=== PATIENT | female | born 1955 | race Caucasian/White ===

== ENCOUNTER 2017-04-09 21:19 | Emergency (ER) | payer MEDICARE, OTHER ==
--- NOTE | 2017-04-09 21:57 | ED ---
Fall HPI - General Chief Complaint: Fall Stated Complaint: Fall/Ankle/knee pain Time Seen by Provider: 04/09/17 21:45 Source: patient, RN notes reviewed Mode of arrival: wheelchair Limitations: no limitations - History of Present Illness Initial Comments: This a 61-year-old female presents emergency Department chief complaint fall. Patient states that she was going in and out of her house into the garage to unload her groceries. She states that she missed a step going into the garage and states she fell down on the ground. Patient states is only 2 steps and denies any head injury no LOC. Patient complains of bilateral wrist, hand pain , right knee pain and primary left ankle pain. Patient states that she does occasionally have use a wheelchair because she has severe rheumatoid arthritis. Patient states her left ankle is swollen greatest the lateral aspect. Patient states is good range of motion of her wrist and hand was very tender. Patient also complains of left medial knee pain. Patient does have an orthopedic doctor Felicitas. - Related Data Allergies Allergy/AdvReac Type Severity Reaction Status Date / Time latex Allergy Anaphylaxis Verified 04/09/17 21:42 atropine [From Lomotil] AdvReac Nausea & Verified 04/09/17 21:42 Vomiting azithromycin AdvReac Nausea & Verified 04/09/17 21:42 Vomiting diphenoxylate [From Lomotil] AdvReac Nausea & Verified 04/09/17 21:42 Vomiting prochlorperazine AdvReac Nausea & Verified 04/09/17 21:42 [From Compazine] Vomiting Sulfa (Sulfonamide AdvReac Nausea & Verified 04/09/17 21:42 Antibiotics) Vomiting sulfamethoxazole AdvReac Nausea & Verified 04/09/17 21:42 [From Bactrim] Vomiting trimethoprim [From Bactrim] AdvReac Nausea & Verified 04/09/17 21:42 Vomiting Review of Systems ROS Statement: Those systems with pertinent positive or pertinent negative responses have been documented in the HPI. ROS Other: All systems not noted in ROS Statement are negative. Past Medical History Past Medical History: Rheumatoid Arthritis (RA) Additional Past Medical History / Comment(s): left achilles tendon tear History of Any Multi-Drug Resistant Organisms: None Reported Past Surgical History: Cholecystectomy Additional Past Surgical History / Comment(s): bilateral knee arthroscopy Past Psychological History: No Psychological Hx Reported Smoking Status: Never smoker Past Alcohol Use History: None Reported Past Drug Use History: Marijuana General Exam Limitations: no limitations General appearance: alert, in no apparent distress, obese Neck exam: Present: full ROM. Absent: tenderness Respiratory exam: Present: normal lung sounds bilaterally. Absent: respiratory distress, wheezes, rales, rhonchi, stridor Cardiovascular Exam: Present: regular rate, normal rhythm, normal heart sounds. Absent: systolic murmur, diastolic murmur, rubs, gallop, clicks Extremities exam: Present: other (Left ankle there is moderate swelling and slight deformity noted, pedal pulses are equal bilaterally there is no foot tenderness, left knee within normal limits., Right knee there is medial tenderness along the tibia, patient has full range of motion there is no patellar tenderness there is no ecchymosis, erythema. Patient right hand is tender over the fifth metacarpal with some swelling noted Refill less than 2 seconds there is no radiation, tenderness, left hand is tenderness along the fourth and fifth metacarpal with no wrist tenderness Refill less than 2 seconds) Course Vital Signs 04/09/17 21:35 Temperature 98.7 F Pulse Rate 69 Respiratory 16 Rate Blood Pressure 142/67 O2 Sat by Pulse 97 Oximetry Procedures - Orthopedic Splinting/Casting Injury #1 Side: left Lower Extremity Injury Location: ankle Lower Extremity Immobilizer: posterior splint (Short leg neurovascular intact before and after procedure) Medical Decision Making - Medical Decision Making 61-year-old female presented for fall. Patient has a left ankle fracture. Patient be splinted and follow up with orthopedics. Return parameters were discussed. Disposition Clinical Impression: Fall, Ankle fracture, left Disposition: HOME SELF-CARE Condition: Stable Instructions: Ankle Fracture (ED) Additional Instructions: Please return to the Emergency Department if symptoms worsen or any other concerns. Referrals: Jessee Wagner DO [Primary Care Provider] - 1-2 days Scott Polk MD [Medical Doctor] - 1-2 days Time of Disposition: 23:15
--- NOTE | 2017-04-09 22:51 | XR ---
EXAM: XR Left Ankle Complete, 3 or More Views. CLINICAL HISTORY: Reason: Pain TECHNIQUE: Frontal, lateral and oblique views of the left ankle. COMPARISON: No relevant prior studies available. FINDINGS: Bones: Transverse, nondisplaced fracture at the lateral malleolus tip. Small plantar calcaneal spur. Joints: Unremarkable. No dislocation. Soft tissues: Moderate soft tissue swelling surrounding the ankle. IMPRESSION: Nondisplaced transverse fracture at the lateral malleolus tip, with surrounding soft tissue swelling.
--- NOTE | 2017-04-09 22:58 | XR ---
EXAM: XR Right Knee, 3 views. CLINICAL HISTORY: Reason: Pain TECHNIQUE: Three views of the right knee. COMPARISON: No relevant prior studies available. FINDINGS: Bones: Unremarkable. No acute fracture. Joints: Unremarkable. No dislocation. Soft tissues: Unremarkable. IMPRESSION: No acute findings in the right knee
--- NOTE | 2017-04-09 23:08 | XR ---
EXAM: XR Left Hand Complete, 3 or More Views. XR Right Hand Complete, 3 or More Views. CLINICAL HISTORY: Reason: Pain TECHNIQUE: Frontal, lateral and oblique views of the bilateral hands. COMPARISON: No relevant prior studies available. FINDINGS: Bones: Unremarkable. No acute fracture. Joints: Unremarkable. No dislocation. Soft tissues: Unremarkable. No radiopaque foreign body. IMPRESSION: Normal bilateral hands.
[2017-04-09 23:33] VITALS: BP 126/60; PULSE 86; RESP 18; TEMP 97.2
== END 2017-04-09 23:33 | disposition home or self-care (01) ==
LOC: EC 21:19
DX: S82.65XA Nondisplaced fracture of lateral malleolus of left fibula, initial encounter for closed fracture (principal); M79.89 Other specified soft tissue disorders; M25.532 Pain in left wrist; M25.531 Pain in right wrist; M79.642 Pain in left hand; M79.641 Pain in right hand; M25.562 Pain in left knee; M25.561 Pain in right knee; M06.9 Rheumatoid arthritis, unspecified; Z91.040 Latex allergy status; Z88.1 Allergy status to other antibiotic agents; Z88.2 Allergy status to sulfonamides; Z88.8 Allergy status to other drugs, medicaments and biological substances; W10.9XXA Fall (on) (from) unspecified stairs and steps, initial encounter; Y92.59 Other trade areas as the place of occurrence of the external cause
CPT/HCPCS: 29515; 99283

== ENCOUNTER → 2018-02-14 | Outpatient (CLI) | payer MEDICARE, OTHER ==
--- NOTE | 2018-02-14 14:59 | XR ---
EXAMINATION TYPE: XR humerus LT, XR elbow complete LT DATE OF EXAM: 02/14/2018 CLINICAL HISTORY: Fall with left upper extremity pain TECHNIQUE: Frontal, lateral and oblique images of the left elbow are obtained. Two views of the left humerus are obtained. COMPARISON: None FINDINGS: There is no acute fracture/dislocation evident in the left elbow. No abnormal fat pad signs are seen . The overlying soft tissue appears unremarkable. There is no acute fracture or dislocation seen in the left humerus. The left glenohumeral and elbow joints appear within normal limits. Moderate acromioclavicular arthropathy is incidentally noted. Th e overlying soft tissue appears within normal limits. IMPRESSION: There is no acute fracture or dislocation in the left elbow. Moderate acromioclavicular arthropathy.
== END | disposition home or self-care (01) ==
LOC: RADXRMAIN 13:34
PROVIDERS: ATTEND Family Medicine
DX: M79.622 Pain in left upper arm (principal); M25.522 Pain in left elbow

== ENCOUNTER 2020-08-05 18:13 | Emergency (ER) | payer MEDICARE, OTHER ==
[2020-08-05 18:29] VITALS: BP 116/62; PULSE 84; RESP 18; TEMP 98
[2020-08-05] MEDS ORDERED: IBUPROFEN 600 MG TAB PO STA (18:53)
--- NOTE | 2020-08-05 19:34 | XR ---
EXAMINATION TYPE: XR shoulder complete RT DATE OF EXAM: 08/05/2020 CLINICAL HISTORY: Right shoulder pain after fall injury. TECHNIQUE: Three views of the right shoulder are obtained. COMPARISON: None. FINDINGS: There is no acute fracture/dislocation evident in the right shoulder. Moderate narrowing a nd mild to moderate capsular hypertrophy with mild spurring acromioclavicular joint. Glenohumeral scott int maintained. Distal acromion morphology unremarkable. The visualized ribs are intact and unremarka ble. IMPRESSION: There is no acute fracture or dislocation in the right shoulder.
--- NOTE | 2020-08-05 19:36 | XR ---
EXAMINATION TYPE: XR ankle complete LT, XR foot complete LT DATE OF EXAM: 08/05/2020 CLINICAL HISTORY: Fall injury with pain TECHNIQUE: Frontal, lateral and oblique images of the left ankle and foot are obtained. COMPARISON: Left ankle x-ray April 09, 2017. FINDINGS: Osseous structures somewhat demineralized. There is no acute fracture/dislocation evident in the left ankle. The ankle mortise appears within normal limits. Some spurring from medial and la teral malleolus redemonstrated. Persistent moderate to large size inferior calcaneal spur. The overly ing soft tissue appears unremarkable currently. There is no acute fracture or dislocation evident in the left foot. The joint spaces in the left sean t are preserved. Some flexion in the toes is present. Overlying soft tissue is unremarkable. IMPRESSION: There is no acute fracture or dislocation in the left ankle or foot.
--- NOTE | 2020-08-05 19:37 | XR ---
EXAMINATION TYPE: XR elbow complete RT DATE OF EXAM: 08/05/2020 CLINICAL HISTORY: Pain after fall injury. TECHNIQUE: Frontal, lateral and oblique images of the right elbow are obtained. COMPARISON: None FINDINGS: There is no acute fracture/dislocation evident in the right elbow. No abnormal fat pad si gns are seen. Mild spurring lateral epicondyle of the distal humerus. The overlying soft tissue appe ars unremarkable. IMPRESSION: There is no acute fracture or dislocation in the right elbow.
--- NOTE | 2020-08-05 19:38 | XR ---
EXAMINATION TYPE: XR wrist complete LT DATE OF EXAM: 08/05/2020 CLINICAL HISTORY: Pain after fall injury. TECHNIQUE: Frontal, lateral , scaphoid, and oblique images of the left wrist are obtained. COMPARISON: Bilateral hand x-ray April 09, 2017 FINDINGS: There is no acute fracture/dislocation evident in the left wrist. Mild to moderate narrowi ng base of first metacarpal. [id number] narrowing of triscaphe joint. The overlying soft tissue appears unremarkable. IMPRESSION: There is no acute fracture or dislocation in the left wrist. No significant change from prior.
--- NOTE | 2020-08-05 19:40 | XR ---
EXAMINATION TYPE: XR knee complete bilateral DATE OF EXAM: 08/05/2020 CLINICAL HISTORY: Pain after fall injury. TECHNIQUE: Three views of the bilateral knees are obtained. COMPARISON: Prior right knee x-ray April 09, 2017 FINDINGS: There is no acute fracture/dislocation evident in either knee. Mild medial tibiofemoral co mpartment joint space loss bilaterally. Mild to moderate patellofemoral compartment joint space loss with mild spurring bilaterally. Curvilinear calcification left knee distal medial femoral condyle co nsistent with old MCL injury or Mario Stieda lesion. The overlying soft tissue appears unremarka ble bilaterally. IMPRESSION: There is no acute fracture or dislocation in either knee.
--- NOTE | 2020-08-05 20:08 | ED ---
Fall HPI - General Chief Complaint: Fall Stated Complaint: fall, wrist/ankle/shoulder pain Time Seen by Provider: 08/05/20 18:31 Source: patient Mode of arrival: wheelchair - History of Present Illness Initial Comments: 64-year-old female past history of rheumatoid arthritis who presents emergency room and after she fell out of her wheelchair. Patient states that she was attempting to take the trash out. She normally stands up and pivots to throw the trash down the chute. She forgot to put up her foot stand and ended up tripping over it. She twisted her left ankle and fell forward onto her bilateral knees and wrists. Patient comes in complaining of left ankle, left foot, left wrist, right shoulder and right elbow pain. Patient continues to have normal range of motion. No obvious deformities. No abrasions or lacerations. States that she was able to get up and sit back in her chair. She took some Tylenol for pain control. Denies hitting her head. No nausea or vomiting. No other alleviating, precipitating or modifying factors - Related Data Allergies Allergy/AdvReac Type Severity Reaction Status Date / Time latex Allergy Anaphylaxis Verified 08/05/20 18:29 atropine [From Lomotil] AdvReac Nausea & Verified 08/05/20 18:29 Vomiting azithromycin AdvReac Nausea & Verified 08/05/20 18:29 Vomiting diphenoxylate [From Lomotil] AdvReac Nausea & Verified 08/05/20 18:29 Vomiting prochlorperazine AdvReac Nausea & Verified 08/05/20 18:29 [From Compazine] Vomiting Sulfa (Sulfonamide AdvReac Nausea & Verified 08/05/20 18:29 Antibiotics) Vomiting sulfamethoxazole AdvReac Nausea & Verified 08/05/20 18:29 [From Bactrim] Vomiting trimethoprim [From Bactrim] AdvReac Nausea & Verified 08/05/20 18:29 Vomiting Review of Systems ROS Statement: Those systems with pertinent positive or pertinent negative responses have been documented in the HPI. ROS Other: All systems not noted in ROS Statement are negative. Past Medical History Past Medical History: Rheumatoid Arthritis (RA) Additional Past Medical History / Comment(s): left achilles tendon tear History of Any Multi-Drug Resistant Organisms: None Reported Past Surgical History: Cholecystectomy Additional Past Surgical History / Comment(s): bilateral knee arthroscopy Past Psychological History: No Psychological Hx Reported Smoking Status: Never smoker Past Alcohol Use History: Occasional Past Drug Use History: Marijuana General Exam Limitations: no limitations General appearance: alert, in no apparent distress Head exam: Present: atraumatic, normocephalic, normal inspection Eye exam: Present: normal appearance, PERRL, EOMI. Absent: scleral icterus, conjunctival injection, periorbital swelling ENT exam: Present: normal exam, mucous membranes moist Neck exam: Present: normal inspection. Absent: tenderness, meningismus, lymphadenopathy Respiratory exam: Present: normal lung sounds bilaterally. Absent: respiratory distress, wheezes, rales, rhonchi, stridor Cardiovascular Exam: Present: regular rate, normal rhythm, normal heart sounds. Absent: systolic murmur, diastolic murmur, rubs, gallop, clicks GI/Abdominal exam: Present: soft, normal bowel sounds. Absent: distended, tenderness, guarding, rebound, rigid Extremities exam: Present: full ROM, tenderness (bilateral knees, left ankle, left foot, left wrist, right elbow, right shoulder. Patient continues to have normal ROM at all joints. No obvious deformity or swelling. 2+ DP, PT, radial and ulnar pulses. Compartments soft. Intact distal sensation. ), normal capillary refill. Absent: pedal edema, joint swelling, calf tenderness Back exam: Present: normal inspection Neurological exam: Present: alert, oriented X3, CN II-XII intact Psychiatric exam: Present: normal affect, normal mood Skin exam: Present: warm, dry, intact, normal color. Absent: rash Course Vital Signs 08/05/20 18:24 Temperature 98 F Pulse Rate 84 Respiratory 18 Rate Blood Pressure 116/62 O2 Sat by Pulse 97 Oximetry Procedures - Orthopedic Splinting/Casting Injury #1 Side: left Upper Extremity Injury Location: wrist Upper Extremity Immobilizer: thumb spica Lower Extremity Immobilizer: synthetic pre-padded splint Medical Decision Making - Medical Decision Making Upon arrival the patient is placed into room 2. A thorough history and physical exam is performed. Patient is sent over for x-rays of her right shoulder, right elbow, bilateral knees over the left wrist, left foot and ankle. Imaging is reviewed and negative for any acute fractures. This is discussed with the patient. She does have tenderness over the anatomical snuffbox of the left wrist. Because of that she is placed in a thumb spica splint. She is instructed not to get it wet. Rest, ice and elevate the extremity. Patient was follow-up with her primary care doctor within 2-4 days. Will need repeat imaging if she has persistent pain in 7-10 days. She understood this. Return to the emergency room for any new or worsening symptoms or patient was discharged home in stable condition Disposition Clinical Impression: Fall, Left wrist pain, Bilateral knee pain, Left ankle pain Disposition: HOME SELF-CARE Condition: Stable Instructions (If sedation given, give patient instructions): Wrist Injury (ED), Fall Prevention for Older Adults (ED) Additional Instructions: Please follow-up with your primary care doctor. Return to the emergency room for any new or worsening symptoms. You may need repeat x-rays if your pain persist Is patient prescribed a controlled substance at d/c from ED?: No Referrals: Jessee Wagner DO [Primary Care Provider] - 1-2 days Geraldo Tuttle MD [STAFF PHYSICIAN] - 1-2 days Time of Disposition: 20:07
== END 2020-08-05 20:41 | disposition home or self-care (01) ==
LOC: EC 18:13
DX: M25.562 Pain in left knee (principal); M25.561 Pain in right knee; M25.532 Pain in left wrist; M25.572 Pain in left ankle and joints of left foot; Z91.040 Latex allergy status; Z88.2 Allergy status to sulfonamides; Z88.1 Allergy status to other antibiotic agents; Z88.5 Allergy status to narcotic agent; Z88.8 Allergy status to other drugs, medicaments and biological substances; W05.0XXA Fall from non-moving wheelchair, initial encounter
CPT/HCPCS: 29125; 99283

== ENCOUNTER 2022-05-07 18:08 | Emergency (ER) | payer MEDICARE, OTHER ==
[2022-05-07 18:50] VITALS: BP 130/79; PULSE 82; RESP 16; TEMP 98.4
--- NOTE | 2022-05-07 19:34 | ED ---
General Adult HPI - General Chief complaint: Extremity Injury, Lower Stated complaint: Ankle injury Time Seen by Provider: 05/07/22 19:20 Source: patient, RN notes reviewed, old records reviewed Mode of arrival: wheelchair Limitations: no limitations - History of Present Illness Initial comments: This is a 66-year-old female presents emergency room complaining of left foot and ankle pain. Patient states it was a pedestal to a table that she sat down and it tipped over and hit her in the foot and medial ankle. Patient states he fifth toe and fifth metatarsal or the most painful but she also has some pain across the other toes and medial malleolus. Patient denies any knee pain patient. Patient denies any other injury. There is no sites of bleeding - Related Data Previous Rx's Medication Instructions Recorded Ibuprofen [Motrin] 600 mg PO Q6HR PRN #20 tab 05/07/22 Allergies Allergy/AdvReac Type Severity Reaction Status Date / Time latex Allergy Anaphylaxis Verified 05/07/22 18:47 atropine [From Lomotil] AdvReac Nausea & Verified 05/07/22 18:47 Vomiting azithromycin AdvReac Nausea & Verified 05/07/22 18:47 Vomiting diphenoxylate [From Lomotil] AdvReac Nausea & Verified 05/07/22 18:47 Vomiting prochlorperazine AdvReac Nausea & Verified 05/07/22 18:47 [From Compazine] Vomiting Sulfa (Sulfonamide AdvReac Nausea & Verified 05/07/22 18:47 Antibiotics) Vomiting sulfamethoxazole AdvReac Nausea & Verified 05/07/22 18:47 [From Bactrim] Vomiting trimethoprim [From Bactrim] AdvReac Nausea & Verified 05/07/22 18:47 Vomiting Review of Systems ROS Statement: Those systems with pertinent positive or pertinent negative responses have been documented in the HPI. ROS Other: All systems not noted in ROS Statement are negative. Past Medical History Past Medical History: Rheumatoid Arthritis (RA) Additional Past Medical History / Comment(s): left achilles tendon tear History of Any Multi-Drug Resistant Organisms: None Reported Past Surgical History: Cholecystectomy Additional Past Surgical History / Comment(s): bilateral knee arthroscopy Past Psychological History: No Psychological Hx Reported Smoking Status: Never smoker Past Alcohol Use History: Occasional Past Drug Use History: Marijuana General Exam - General Exam Comments Initial Comments: GENERAL Patient is well-developed and well-nourished. Patient is in mild distress. EYES Patient's pupils are equal and round. Extraocular motion is intact SKIN Unremarkable NEURO The patient is alert and oriented 3 PYSCH Patient has normal interpersonal interactions. MUSCULOSKELETAL Patient has ecchymosis of the fifth toe on the left as well as the distal fifth metatarsal. Lateral malleolus is also tender Limitations: no limitations Course Vital Signs 05/07/22 18:48 Temperature 98.4 F Pulse Rate 82 Respiratory 16 Rate Blood Pressure 130/79 O2 Sat by Pulse 96 Oximetry Medical Decision Making - Medical Decision Making Patient's ankle and foot x-ray showed no acute abnormality. Patient was given an orthopedic shoe until the follow-up with orthopedics 5 days if there is no improvement. Disposition Clinical Impression: Contusion, toes, Ankle sprain Disposition: HOME SELF-CARE Prescriptions: Ibuprofen [Motrin] 600 mg PO Q6HR PRN #20 tab PRN Reason: For pain Is patient prescribed a controlled substance at d/c from ED?: No Referrals: Jessee Wagner DO [Primary Care Provider] - 1-2 days Time of Disposition: 20:02
--- NOTE | 2022-05-07 19:45 | XR ---
EXAMINATION TYPE: XR ankle complete LT DATE OF EXAM: 05/07/2022 COMPARISON: NONE HISTORY: Fall. Pain TECHNIQUE: 3 views FINDINGS: Ankle mortise is anatomic. No fracture nor dislocation. Joint spaces are normal. There is p lantar calcaneal spurring. IMPRESSION: Calcaneal spurring. No fracture seen.
--- NOTE | 2022-05-07 19:50 | XR ---
EXAMINATION TYPE: XR foot complete LT DATE OF EXAM: 05/07/2022 COMPARISON: 08/05/2020 HISTORY: Pain TECHNIQUE: 3 views FINDINGS: Metatarsals appear intact. The toes appear intact No fracture nor dislocation. Joint spaces are fairly normal. There is a large plantar calcaneal spur. IMPRESSION: Calcaneal spurring. No fracture seen.
== END 2022-05-07 20:25 | disposition home or self-care (01) ==
LOC: EC 18:08
DX: S93.402A Sprain of unspecified ligament of left ankle, initial encounter (principal); S90.122A Contusion of left lesser toe(s) without damage to nail, initial encounter; W22.03XA Walked into furniture, initial encounter
CPT/HCPCS: 99283

== ENCOUNTER → 2024-06-13 | Outpatient (CLI) | payer MEDICARE, OTHER | END | disposition home or self-care (01) | LOC: LABPRL 12:20 | PROVIDERS: ATTEND Nurse Practitioner Family | DX: Z00.00 Encounter for general adult medical examination without abnormal findings (principal); I10 Essential (primary) hypertension; E11.9 Type 2 diabetes mellitus without complications; E55.9 Vitamin D deficiency, unspecified | CPT/HCPCS: 80053; 80061; 82306; 83036; 84439; 84443; 85025 ==

== ENCOUNTER → 2024-06-27 | Outpatient (CLI) | payer MEDICARE, OTHER ==
--- NOTE | 2024-07-04 09:15 | MM ---
Reason for Exam: Screening (asymptomatic). Last mammogram was performed 9 year(s) and 1 month(s) ago. Patient History: Menarche at age 13. Patient has no children. Postmenopausal. Maternal cousin had breast cancer, age 28. Mother had breast cancer, age 77. Risk Values: Sudha 5 year model risk: 3.1%. NCI Lifetime model risk: 9.3%. Prior Study Comparison: 04/04/2013 Bilateral Screening Mammogram, [facility]. 04/17/2014 Bilateral Screening Mammogram, [facility]. 05/01/2015 Bilateral Screening Mammogram, [facility]. Tissue Density: The breasts are almost entirely fatty. Findings: Analyzed By CAD. Right breast: There is no suspicious group of microcalcifications or new suspicious mass. Left breast: There is no suspicious group of microcalcifications or new suspicious mass. Overall Assessment: Negative, BI-RAD 1 Management: Screening Mammogram of both breasts in [address] [facility] will attempt to contact patient to return for supplemental views and ultrasound if indicated. Patient should continue monthly self-breast exams. A clinical breast exam by your physician is recommended on an annual basis. This exam should not preclude additional follow-up of suspicious palpable abnormalities. Note on Sudha scores and lifetime risk: 1. A Sudha score greater than 3% is considered moderate risk. If this is the case, consider specialist referral to assess eligibility for a risk reducing agent. 2. If overall lifetime risk for the development of breast cancer is 20% or higher, the patient may qualify for future screening with alternating mammogram and breast MRI. Electronically signed and approved by: Sonny Wilson DO
== END | disposition home or self-care (01) ==
LOC: RADMAMWWP 10:36
PROVIDERS: ATTEND Family Medicine
DX: Z12.31 Encounter for screening mammogram for malignant neoplasm of breast
CPT/HCPCS: 77063; 77067

== ENCOUNTER → 2025-01-07 | Outpatient (CLI) | payer MEDICARE, OTHER ==
[2025-01-07 15:27] LABS: ALT 17 U/L (8-44); AST 19 U/L (13-35); Albumin 3.5 g/dL (3.8-4.9); Albumin/Globulin Ratio 1.35 Ratio (1.60-3.17); Alkaline Phosphatase 71 U/L (41-126); Blood Urea Nitrogen 15.2 mg/dL (9.0-27.0); Carbon Dioxide 27.3 mmol/L (21.6-31.8); Chloride 97 mmol/L (96-109); Globulin 2.6 g/dL (1.6-3.3); Glucose 285 mg/dL (70-110); Potassium 3.8 mmol/L (3.5-5.5); Sodium 135 mmol/L (135-145); Total Bilirubin 0.3 mg/dL (0.3-1.2); Total Protein 6.1 g/dL (6.2-8.2)
== END | disposition home or self-care (01) ==
LOC: LABWHC1 11:00
PROVIDERS: ATTEND Nurse Practitioner Family
DX: I10 Essential (primary) hypertension (principal); E11.65 Type 2 diabetes mellitus with hyperglycemia; L40.50 Arthropathic psoriasis, unspecified
CPT/HCPCS: 36415; 80053; 83036